=== PATIENT | female | born 1965 | race Caucasian/White ===

== ENCOUNTER 2019-01-10 16:54 | Inpatient (IN) | payer SELFPAY ==
[~2019-01-10] VITALS: Ht 152.4 cm; Wt 55.5 kg
[2019-01-10] MEDS ORDERED: IV NORMAL SALINE 1000ML BAG 1,000 ML IV SCH ×2 (16:58→21:00)
[2019-01-10] MEDS ORDERED: IV NORMAL SALINE 1000ML BAG 1,000 ML IV ONE (17:00)
[2019-01-10 17:19] LABS: CREATININE ISTAT 0.5 mg/dL (0.5-1.4); HEMOGLOBIN ISTAT 9.5 g/dL (12-15); ION CA ISTAT 0.87 mmol/L (1.13-1.32); POTASSIUM ISTAT 3.4 mmol/L (3.5-5.0)
[2019-01-10 17:57] LABS: BASE EXCESS ABG -4 mmol/L (-3-3); HCO3 ABG 17 mmol/L (21-28); PCO2 ABG 22 mmHg (35-46); PO2 ABG 105 mmHg (75-108); SAT O2 ABG 97 % (92-99)
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
[2019-01-10 18:09] LABS: FIO2 ABG 32
[2019-01-10 18:34] LABS: BASO % 0 % (0-3); EOS % 0 % (0-3); HEMATOCRIT 26.3 % (36.0-47.0); HEMOGLOBIN 8.8 g/dL (12.0-15.5); LYMPH # 1.8 x10^3/uL (1.0-4.8); LYMPH % 18 % (24-48); MEAN CORPUSCULAR HEMOGLOBIN 32 pg (25-35); MEAN CORPUSCULAR HGB CONC 33 g/dL (31-37); MEAN CORPUSCULAR VOLUME 97 fL (79-100); MONO # 0.5 x10^3/uL (0.0-1.1); MONO % 5 % (0-9); NEUT # 7.8 x10^3uL (1.8-7.7); NEUT % 77 % (31-73); PLATELET COUNT 385 x10^3/uL (140-400); RED CELL DISTRIBUTION WIDTH 14.6 % (11.5-14.5); WHITE BLOOD COUNT 10.1 x10^3/uL (4.0-11.0)
[2019-01-10 18:44] LABS: PROTHROMBIN TIME PATIENT 16.5 SEC (11.7-14.0)
[2019-01-10 18:56] LABS: ALBUMIN 2.3 g/dL (3.4-5.0); ALBUMIN/GLOBULIN RATIO 0.4 (1.0-1.7); CALCIUM 8.3 mg/dL (8.5-10.1); CREATININE 0.8 mg/dL (0.6-1.0); MAGNESIUM 1.5 mg/dL (1.8-2.4); TOTAL BILIRUBIN 0.5 mg/dL (0.2-1.0); TOTAL PROTEIN 7.6 g/dL (6.4-8.2)
[2019-01-10 19:01] LABS: D-DIMER 4.92 ug/mlFEU (0.00-0.50); POTASSIUM 2.7 mmol/L (3.5-5.1)
--- NOTE | 2019-01-10 19:11 | RAD ---
INDICATION: weakness, tachycardia, no priors COMPARISON: None. TECHNIQUE: Axial CT images obtained through the head without intravenous contrast. One or more of the following individualized dose reduction techniques were utilized for this examination: 1. Automated exposure control; 2. Adjustment of the mA and/or kV according to patient size; 3. Use of iterative reconstruction technique. FINDINGS: No intracranial hemorrhage. No midline shift. Basal cisterns patents. Ventricles and sulci are unremarkable No acute osseous abnormality. Orbits and paranasal sinuses unremarkable. Scattered foci of low attenuation within the white matter. IMPRESSION: 1. No acute intracranial hemorrhage. 2. Scattered regions of low attenuation within the white matter. Non-specific in nature but frequently secondary to chronic small vessel ischemic disease. Electronically signed by: Kenneth Jane MD (01/10/2019 7:07 PM) [facility]
[2019-01-10] MEDS ORDERED: POTASSIUM CHLORIDE 20 MEQ TABLET.ER. PO ONE (19:15)
--- NOTE | 2019-01-10 19:19 | EKG ---
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
[2019-01-10 19:29] LABS: BILIRUBIN,URINE SMALL (NEG); CLARITY,URINE CLOUDY; COLOR,URINE AMBER; NITRITE,URINE NEGATIVE (NEG); PH,URINE 5.5; PROTEIN,URINE 30 mg/dL (NEG-TRACE)
[2019-01-10 19:33] LABS: BARBITURATES NEG (NEG); BENZODIAZEPINES POS (NEG); CANNABINOIDS NEG (NEG); COCAINE POS (NEG); METHADONE NEG (NEG); OPIATES NEG (NEG); PHENCYCLIDINE NEG (NEG)
[2019-01-10 19:36] LABS: AMPHETAMINE/METHAMPHETAMINE NEG (NEG)
[2019-01-10 19:42] LABS: HYALINE CASTS, URINE MANY /HPF
[2019-01-10 19:43] LABS: BACTERIA,URINE MODERATE /HPF (0-FEW); RBC,URINE 20-40 /HPF (0-2); TRICHOMONAS,URINE PRESENT; WBC,URINE >40 /HPF (0-4)
[2019-01-10] MEDS ORDERED: CONTRAST GIVEN. MC PRN (20:15)
[2019-01-10] MEDS ORDERED: cefTRIAXone IV Push 1 GM VIAL. IVP ONE (20:15)
[2019-01-10] MEDS ORDERED: IOHEXOL 350 MG/ML 100 ML VIAL. IV ONE (20:15)
--- NOTE | 2019-01-10 20:45 | RAD ---
INDICATION: soa, elevated d dimer, [id number] 75ml, no priors COMPARISON: None. TECHNIQUE: Axial CT images obtained through the chest. Intravenous contrast utilized. Angiogram 3D images processed per protocol. One or more of the following individualized dose reduction techniques were utilized for this examination: 1. Automated exposure control; 2. Adjustment of the mA and/or kV according to patient size; 3. Use of iterative reconstruction technique. FINDINGS: Within the left breast there is a masslike structure identified measuring approximately 24 x 13 mm. Cystic changes throughout the bilateral lungs. No evidence of pneumothorax. There are several sub-4 mm lung nodules most prominent within the right lung but seen bilaterally. Additionally in the right infrahilar region adjacent to one of the vessels there is a suspected nodule measuring up to about 7 mm. Partial visualization of suspected right renal stones. Suspected small hiatal hernia. Scattered prominent lymph nodes within the mediastinum. For example in the precarinal region measuring up to about 10 mm short axis. Degenerative changes of the spine. Multiple suspected right rib fractures including the third, fifth, 7 and possibly eighth. Small sclerotic focus in the left lower ribs. Most commonly from bone island unless the patient has known history of neoplasm. Portion of ascending thoracic aorta obscured by motion but no aneurysm in visualized portion. No central pulmonary embolus with some of the peripheral vessels obscured by motion. IMPRESSION: No focal airspace consolidation to suggest pneumonia. No embolus in the central pulmonary arteries with some limitation peripherally secondary to motion. Poor evaluation of the ascending thoracic aorta secondary to motion but no aneurysm is seen within the arch or descending thoracic aorta. Right-sided rib fractures are identified. Would correlate with symptoms in the region. Within the partially visualized left breast there is a masslike structure identified. Although it is possible that this is secondary to dense glandular tissue would obtain a diagnostic mammogram to further evaluate and ensure that there is not a breast mass. Multiple pulmonary nodules measuring up to about 7 mm. Fleischner Society recommendations for solitary solid lung nodule follow up.: In a low risk patient: <6mm - No follow up required. 6-8mm - 6-[address], then CT at 18-24 months. >8mm - CT at 3 months, PET/CT or tissue sampling. In a high risk patient (history of smoking or other known risk factors): <6mm - Follow up CT at 12 months. 6-8mm - 6-[address], then CT at 18-24 months. >8mm - CT at 3 months, PET/CT or tissue sampling. Fleischner Society recommendations for multiple solid lung nodule follow up.: In a low risk patient: <6mm - No follow up required. 6-8mm - 3-[address], then CT at 18-24 months. >8mm - CT at 3-6 months, then at 18-24 months. PET/CT or tissue sampling based on most suspicious nodule. In a high risk patient (history of smoking or other known risk factors): <6mm - Follow up CT at 12 months. 6-8mm - 3-[address], then CT at 18-24 months. >8mm - CT at 3-6 months, PET/CT or tissue sampling option based on most suspicious nodule. Electronically signed by: Kenneth Jane MD (01/10/2019 8:42 PM) [facility]
[2019-01-10] MEDS ORDERED: ONDANSETRON PF 4 MG/2 ML VIAL. IV PRN ×2 (21:00→21:15)
[2019-01-10] MEDS ORDERED: ACETAMINOPHEN 325 MG TABLET. PO PRN (21:00)
[2019-01-10] MEDS ORDERED: guaiFENesin ORAL 200 MG/10 ML LIQUID. PO PRN (21:15)
[2019-01-10] MEDS ORDERED: ZOLPIDEM 5 MG TABLET. PO PRN (21:15)
[2019-01-10] MEDS ORDERED: DOCUSATE SODIUM 100 MG CAPSULE. PO PRN (21:15)
[2019-01-10] MEDS ORDERED: MAG HYDROX/ALUMINUM HYD/SIMETH 30 ML ORAL.SUSP PO PRN (21:15)
[2019-01-10] MEDS ORDERED: SODIUM PHOSPHATES 19/7GM 133 ML ENEMA. PR PRN (21:15)
[2019-01-10] MEDS ORDERED: ALBUTEROL SULFATE 2.5 MG/3 ML NEBU. NEB PRN (21:15)
[2019-01-10] MEDS ORDERED: diphenhydrAMINE 50 MG/ML VIAL IVP PRN (21:15)
[2019-01-10] MEDS ORDERED: ACETAMINOPHEN 650 MG SUPP.RECT. PR PRN (21:15)
[2019-01-10] MEDS ORDERED: MAGNESIUM SULFATE 2GM 50 ML IV ONE (21:30)
[2019-01-10] MEDS ORDERED: metroNIDAZOLE 500 MG TABLET PO ONE (21:30)
[2019-01-10] MEDS: IPRATRPIUM/ALBUTEROL 0.5/2.5MG 3 ML NEBU. NEB SCH (22:00)
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
[2019-01-10] MEDS: IV NORMAL SALINE 1000ML BAG 1,000 ML IV SCH (23:58)
[2019-01-11] VITALS (11 sets, daily range): BP systolic 93–137; BP diastolic 44–74
--- NOTE | 2019-01-11 00:15 | NUR ---
The patient, BEBO LEMUS, 53 y/o, F admitted by FARRAH ELLINGTON MD, was given written information regarding hospital policies, unit procedures and contact persons. Valuables were checked and left in the house. Addendum: 01/11/19 at 0243 by MIKEY JOHNSON RN RN Valuables were checked and left in the room.
[2019-01-11] MEDS: POTASSIUM CHLORIDE 10MEQ 100 ML IV SCH ×8 (01:59→09:22)
--- NOTE | 2019-01-11 02:40 | RAD ---
CLINICAL HISTORY: Right lower extremity COMPARISON: None available. TECHNIQUE: Ultrasound evaluation of the right leg was performed from the groin to the upper calf with gamino scale, spectral and color doppler evaluation. FINDINGS: The right common femoral vein, and femoral vein, including the saphenous-femoral junction are normal in appearance. Color and spectral Doppler evaluation demonstrates normal spontaneous flow, augmentation and phasicity. The right popliteal vein and visualized calf veins also demonstrate normal compressibility and flow. IMPRESSION: 1. No evidence for DVT in the right lower extremity Electronically signed by: Manuel Monsalve MD (01/11/2019 2:37 AM) [place] [id number]
--- NOTE | 2019-01-11 02:45 | NUR ---
Patient Potassium chloride running behind as she came to the floor at 0015 FROM ED, and the KCL from 2200 has not been administered.
[2019-01-11 04:20] LABS: BASO % 1 % (0-3); EOS # 0.1 x10^3/uL (0.0-0.7); EOS % 1 % (0-3); LYMPH # 3.2 x10^3/uL (1.0-4.8); LYMPH % 48 % (24-48); MEAN CORPUSCULAR HEMOGLOBIN 32 pg (25-35); MEAN CORPUSCULAR HGB CONC 33 g/dL (31-37); MEAN CORPUSCULAR VOLUME 98 fL (79-100); MONO # 0.4 x10^3/uL (0.0-1.1); MONO % 6 % (0-9); NEUT % 45 % (31-73); PLATELET COUNT 300 x10^3/uL (140-400); RED CELL DISTRIBUTION WIDTH 14.4 % (11.5-14.5); WHITE BLOOD COUNT 6.7 x10^3/uL (4.0-11.0)
[2019-01-11 04:39] LABS: HEMOGLOBIN 6.1 g/dL (12.0-15.5)
[2019-01-11 04:40] LABS: HEMATOCRIT 18.7 % (36.0-47.0)
[2019-01-11 04:49] LABS: CALCIUM 7.4 mg/dL (8.5-10.1); CREATININE 0.7 mg/dL (0.6-1.0); GFR 87.5; POTASSIUM 3.2 mmol/L (3.5-5.1)
[2019-01-11] MEDS: IPRATRPIUM/ALBUTEROL 0.5/2.5MG 3 ML NEBU. NEB SCH ×5 (06:21→22:00)
--- NOTE | 2019-01-11 07:21 | NUR ---
Patient Hemoglobin and hemocratic was critical at 6. and 18.7 respectively. The nurse called the doctor and received an order to repeat the labs and then transfuse 2 units of blood. The labs were repeated after 30 minutes, hemoglobin was 7.1 and hemocratic was 22.6. The nurse called the lab to find out if they have an idea what could have caused the difference within that short duration. Amy, from lab, called and told the nurse that they will repeat the labs to see if they can find out what is going on. The nurse will continue monitoring the patient.
--- NOTE | 2019-01-11 08:07 | RAD ---
Chest radiograph 01/10/2019 6:11 PM INDICATION: Vertigo, mild distress COMPARISON: None available TECHNIQUE: Portable upright frontal view of the chest is provided. FINDINGS: The cardiomediastinal silhouette is within normal limits. There are no pleural effusions. There is no pulmonary vascular congestion. There is no pneumothorax. The lungs are clear. Pulmonary emphysematous changes are present. No significant osseous abnormality is identified. IMPRESSION: COPD changes without acute cardiopulmonary process. Electronically signed by: Kassy Villar MD (01/11/2019 8:04 AM) [id number]
--- NOTE | 2019-01-11 08:14 | RAD ---
Examination: PELVIS History: ER PATIENT. PELVIS PAIN TODAY NKI. Comparison/Correlation: 01/10/2019 portable view of the pelvis Findings: Portable frontal view of the pelvis was obtained. Patient is oblique on this image which may slightly limit assessment. Intrauterine device noted. Hip joint spaces are symmetric. No displaced fracture or bony destructive finding. Transitional L5 vertebra noted. No significant degenerative change. Calcification within the pelvic midline anteriorly is of indeterminate significance. Impression: No acute process. Consider further correlation if occult process is a persistent concern. Electronically signed by: Robbie Ellsworth MD (01/11/2019 8:11 AM) [facility]
[2019-01-11] MEDS ORDERED: ENOXAPARIN 40 MG/0.4 ML SYRINGE. SQ SCH (09:00)
[2019-01-11 09:43] LABS: HEMOGLOBIN 6.3 g/dL (12.0-15.5)
--- NOTE | 2019-01-11 09:45 | NUR ---
wound care patient seen per wound care consult. see wound assessment. patient has a right dorsal foot wound that patient state her dog stepped on her foot, the wound was cleaned and redressed with Medihoney alginate with a foam dressing, change every 2-3 days. patient assessed from head to toe and no other wounds noted at this time. wound care will continue to f/u.
[2019-01-11 09:53] LABS: HEMATOCRIT 18.9 % (36.0-47.0)
--- NOTE | 2019-01-11 09:57 | PDOC ---
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 Chloride (Klor-Con) 40 meq DAILY16 PO ; Start 01/11/19 at 16:00 Sodium Chloride 1,000 ml @ 100 mls/hr Q10H IV Last administered on 01/10/19at 23:58; Start 01/10/19 at 21:05 Ondansetron HCl (Zofran) 4 mg PRN Q4HRS PRN IV NAUSEA/VOMITING 1ST CHOICE; Start 01/10/19 at 21:15 Zolpidem Tartrate (Ambien) 5 mg PRN QHS PRN PO INSOMNIA; Start 01/10/19 at 21: 15 Acetaminophen (Tylenol) 650 mg PRN Q4HRS PRN PO TEMP OVER 100.4F OR MILD PAIN; Start 01/10/19 at 21:15 Acetaminophen (Tylenol Supp) 650 mg PRN Q4HRS PRN SD TEMP OVER 100.4F OR MILD PAIN; Start 01/10/19 at 21:15 Al Hydroxide/Mg Hydroxide (Mylanta Plus Xs) 30 ml PRN DAILY PRN PO HEARTBURN / GAS; Start 01/10/19 at 21:15 Sodium Monofluorophosphate (Fleet Adult) 133 ml PRN DAILY PRN SD CONSTIPATION 2ND CHOICE; Start 01/10/19 at 21:15 Diphenhydramine HCl (Benadryl) 25 mg PRN Q4HRS PRN IVP ITCHING; Start 01/10/19 at 21:15 Docusate Sodium (Colace) 100 mg PRN BID PRN PO CONSTIPATION 1ST CHOICE; Start 01/10/19 at 21:15 Albuterol Sulfate (Ventolin Neb Soln) 2.5 mg PRN Q4HRS PRN NEB SHORTNESS OF BREATH; Start 01/10/19 at 21:15 Albuterol/ Ipratropium (Duoneb) 3 ml Q4HRS W/A NEB Last administered on at 06:21; Start 01/10/19 at 22:00 Guaifenesin (Robitussin) 200 mg PRN Q4HRS PRN PO COUGH 1ST CHOICE; Start at 21:15 Lorazepam (Ativan) 1 mg PRN Q4HRS PRN IV ANXIETY / AGITATION Last administered on 01/11/19at 01:58; Start 01/10/19 at 21:15 Enoxaparin Sodium (Lovenox 40mg Syringe) 40 mg DAILY SQ Last administered on 08/21at 09:21; Start 01/11/19 at 09:00 Levofloxacin/ Dextrose 100 ml @ 100 mls/hr Q24H IV Last administered on at 23:58; Start 01/10/19 at 22:00 Potassium Chloride/Water 100 ml @ 100 mls/hr Q1H IV Last administered on at 09:22; Start 01/10/19 at 22:00; Stop 01/11/19 at 06:00; Status DC Magnesium Sulfate 50 ml @ 25 mls/hr 1X ONCE IV Last administered on 01/11/19at 00:02; Start 01/10/19 at 21:30; Stop 01/10/19 at 23:29; Status DC Vitals/I & O Vital Sign - Last 24 Hours 01/10/19 01/11/19 01/11/19 01/11/19 17:05 00:15 00:48 03:57 Temp 98.6 97.8 98.4 98.6 97.8 98.4 Pulse 134 113 105 Resp 22 16 20 B/P (MAP) 132/66 (88) 125/60 (81) 93/44 (60) Pulse Ox 88 97 97 O2 Delivery Room Air Room Air Room Air Room Air 01/11/19 01/11/19 06:19 07:00 Temp 99.2 99.2 Pulse 103 Resp 16 B/P (MAP) 103/46 (65) Pulse Ox 99 96 O2 Delivery Room Air Room Air Intake and Output 01/10/19 01/10/19 01/11/19 14:59 22:59 06:59 Intake Total 2000 ml 440 ml Output Total 700 ml Balance 2000 ml -260 ml RENETTA VALENCIA MD Jan 11, 2019 09:57
[2019-01-11] MEDS: PANTOPRAZOLE IV PUSH 40 MG VIAL. IVP SCH (10:30)
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
[2019-01-11 12:16] LABS: FREE T4 1.35 ng/dL (0.76-1.46)
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
[2019-01-11] MEDS ORDERED: POTASSIUM CHLORIDE 20 MEQ TABLET.ER. PO ONE (14:00)
--- NOTE | 2019-01-11 15:27 | NUR ---
3 x Potassium bags were non-admin once patient started on PO tablets.
[2019-01-11] MEDS: POTASSIUM CHLORIDE 20 MEQ TABLET.ER. PO SCH (16:01)
[2019-01-11] MEDS: IV NORMAL SALINE 1000ML BAG 1,000 ML IV SCH ×2 (16:02→17:44)
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
[2019-01-11] MEDS: ACETAMINOPHEN 325 MG TABLET. PO PRN (18:30)
[2019-01-11] MEDS: LACTOBACILLUS RHAMNOSUS GG 1 CAPSULE. PO SCH (20:29)
[2019-01-11] MEDS: cefTRIAXone IV Push 1 GM VIAL. IVP SCH (20:30)
[2019-01-12 03:15] VITALS: BP 107/64
[2019-01-12 04:45] LABS: BASO % 1 % (0-3); EOS # 0.1 x10^3/uL (0.0-0.7); EOS % 2 % (0-3); HEMATOCRIT 23.8 % (36.0-47.0); HEMOGLOBIN 8.1 g/dL (12.0-15.5); LYMPH % 56 % (24-48); MEAN CORPUSCULAR HEMOGLOBIN 34 pg (25-35); MEAN CORPUSCULAR HGB CONC 34 g/dL (31-37); MEAN CORPUSCULAR VOLUME 98 fL (79-100); MONO # 0.3 x10^3/uL (0.0-1.1); MONO % 8 % (0-9); NEUT # 1.2 x10^3uL (1.8-7.7); NEUT % 33 % (31-73); PLATELET COUNT 237 x10^3/uL (140-400); RED BLOOD COUNT 2.42 x10^6/uL (3.50-5.40); RED CELL DISTRIBUTION WIDTH 14.5 % (11.5-14.5); WHITE BLOOD COUNT 3.6 x10^3/uL (4.0-11.0)
[2019-01-12 05:17] LABS: ALBUMIN 1.7 g/dL (3.4-5.0); ALBUMIN/GLOBULIN RATIO 0.4 (1.0-1.7); ALK PHOS 79 U/L (46-116); ANION GAP 9 (6-14); AST (SGOT) 17 U/L (15-37); BLOOD UREA NITROGEN 7 mg/dL (7-20); BUN/CREATININE RATIO 12 (6-20); CALCIUM 7.4 mg/dL (8.5-10.1); CARBON DIOXIDE 23 mmol/L (21-32); CHLORIDE 106 mmol/L (98-107); CREATININE 0.6 mg/dL (0.6-1.0); GFR 104.6; GLUCOSE 105 mg/dL (70-99); POTASSIUM 3.6 mmol/L (3.5-5.1); SODIUM 138 mmol/L (136-145); TOTAL BILIRUBIN 0.6 mg/dL (0.2-1.0); TOTAL PROTEIN 5.7 g/dL (6.4-8.2)
[2019-01-12 05:38] LABS: ALT (SGPT) < 6 U/L (14-59)
[2019-01-12] MEDS: IV NORMAL SALINE 1000ML BAG 1,000 ML IV SCH ×3 (05:56→17:18)
[2019-01-12] MEDS: IPRATRPIUM/ALBUTEROL 0.5/2.5MG 3 ML NEBU. NEB SCH ×5 (06:00→22:00)
[2019-01-12 07:00] VITALS: BP 122/67
[2019-01-12] MEDS: PANTOPRAZOLE IV PUSH 40 MG VIAL. IVP SCH (07:59)
[2019-01-12] MEDS: ACETAMINOPHEN 325 MG TABLET. PO PRN ×2 (08:06→17:15)
[2019-01-12] MEDS: POTASSIUM CHLORIDE 20 MEQ TABLET.ER. PO SCH ×2 (08:07→17:16)
[2019-01-12] MEDS: LACTOBACILLUS RHAMNOSUS GG 1 CAPSULE. PO SCH ×2 (08:07→21:25)
--- NOTE | 2019-01-12 09:20 | PDOC ---
Subjective: Subjective: Says she needs the pain in her leg to stop, asks about Voltaren. No GI complaints - tolerating PO, denies abd pain. Hasn't stooled "but I just started eating again." No bleeding. Objective: Vital Signs: Vital Signs Date Time Temp Pulse Resp B/P (MAP) Pulse Ox O2 Delivery O2 Flow Rate FiO2 01/12/19 07:00 98.2 84 20 122/67 (85) 97 Room Air 98.2 Labs: Laboratory Tests Test 01/12/19 04:20 White Blood Count 3.6 x10^3/uL Red Blood Count 2.42 x10^6/uL Hemoglobin 8.1 g/dL Hematocrit 23.8 % Mean Corpuscular Volume 98 fL Mean Corpuscular Hemoglobin 34 pg Mean Corpuscular Hemoglobin Concent 34 g/dL Red Cell Distribution Width 14.5 % Platelet Count 237 x10^3/uL Neutrophils (%) (Auto) 33 % Lymphocytes (%) (Auto) 56 % Monocytes (%) (Auto) 8 % Eosinophils (%) (Auto) 2 % Basophils (%) (Auto) 1 % Neutrophils # (Auto) 1.2 x10^3uL Lymphocytes # (Auto) 2.0 x10^3/uL Monocytes # (Auto) 0.3 x10^3/uL Eosinophils # (Auto) 0.1 x10^3/uL Basophils # (Auto) 0.0 x10^3/uL Sodium Level 138 mmol/L Potassium Level 3.6 mmol/L Chloride Level 106 mmol/L Carbon Dioxide Level 23 mmol/L Anion Gap 9 Blood Urea Nitrogen 7 mg/dL Creatinine 0.6 mg/dL Estimated GFR (Cockcroft-Gault) 104.6 BUN/Creatinine Ratio 12 Glucose Level 105 mg/dL Calcium Level 7.4 mg/dL Total Bilirubin 0.6 mg/dL Aspartate Amino Transf (AST/SGOT) 17 U/L Alanine Aminotransferase (ALT/SGPT) < 6 U/L Alkaline Phosphatase 79 U/L Total Protein 5.7 g/dL Albumin 1.7 g/dL Albumin/Globulin Ratio 0.4 Imaging: CT A/P 01/11 IMPRESSION: There is no free fluid within the abdomen and pelvis. No retroperitoneal or intra-abdominal hematoma. Nonobstructing bilateral renal calculi are identified. No hydronephrosis. IUD is present. Small hiatal hernia. Knee X-Ray 01/11 pending PE: GEN: NAD LUNGS: CTAB HEART: RRR ABD: NABS, S/ND/NT NEURO/PSYCH: A & O 3 A/P: Right leg pain ACD Hep C IgG Ab reactive -- Defer pain control to primary, await Hep C PCR and cryoglobulins. Can have PO PPI. ARIANNA MELO Jan 12, 2019 09:20
[2019-01-12] MEDS ORDERED: POLYETHYLENE GLYCOL 3350 17 GM PACKET. PO PRN (09:30)
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
[2019-01-12 11:00] VITALS: BP 131/79
--- NOTE | 2019-01-12 11:32 | NUR ---
Telemetry rhythm SR with PVC per charge nurse, Erna
[2019-01-12] MEDS: DICLOFENAC SODIUM 1% TOPICAL GEL 100GM TUBE. TP SCH ×2 (13:00→21:25)
[2019-01-12] MEDS: GABAPENTIN 100 MG CAPSULE. PO SCH ×2 (13:41→21:25)
--- NOTE | 2019-01-12 13:53 | NUR ---
SW following pt for dc needs. Chart reviewed. Pt lives at home alone and no dc needs noted at this time. Will continue to evaluate.
--- NOTE | 2019-01-12 14:05 | RAD ---
3 view study of both knees Clinical indications: Pain and swelling of knees. Right knee: No acute fracture or dislocation or lytic process is seen. Small right knee joint effusion is seen. No significant arthritic change is seen. Left knee: No acute fracture or dislocation or lytic process is seen. Small left knee joint effusion is seen. No significant arthritic change is seen. IMPRESSION: No acute osseous abnormality. Small bilateral knee joint effusions. Electronically signed by: Washington Newby MD (01/12/2019 2:03 PM) [facility]
--- NOTE | 2019-01-12 14:24 | EEG ---
DATE OF SERVICE: 01/11/2019 EEG NUMBER: [id number] OBJECTIVE: This is a 53-year-old female patient with history of confusional episodes. EEG was requested to help rule out seizure. METHODS: Twenty electrodes were applied according to the international 10-20 electrode placement system. EKG monitoring, hyperventilation, intermittent photic stimulation, monopolar and bipolar montages are routinely utilized. The record was obtained on a digital system with video monitoring. MEDICATIONS: No anti-seizure medication. Cocaine positive in test. FINDINGS: 1. Background: The patient was recorded in the awake and drowsy states. No sleep state was recorded. The overall background amplitude is 10-20 microvolts. A posterior dominant rhythm of 8 Hz is observed with superimposed fast activity in the Beta frequency. 2. Abnormalities: No specific epileptiform discharge or electrographic seizure is seen. No focal or diffuse slowing. 3. Activation: Hyperventilation was performed with good efforts and normal response. Intermittent photic stimulation was performed with photic driving. No specific epileptiform discharge or electrographic seizure induced by hyperventilation or intermittent photic stimulation. IMPRESSION: This EEG is a borderline study for the awake and drowsy states. There is superimposed fast activity in the Beta frequency which may be medication or drug effect. No focal, lateralizing, specific epileptiform discharge or electrographic seizure is seen. CHARLIE BAIRD MD DR: GONZALO/axel JOB#: [id number] / [id number] CELE[facility]
[2019-01-12 15:00] VITALS: BP 129/79
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
[2019-01-12] MEDS: CALCIUM CARB/VIT D3 500/200 TABLET. PO SCH (17:15)
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
[2019-01-12 19:00] VITALS: BP 127/69
[2019-01-12 19:09] LABS: FECAL OB PT NEGATIVE (NEG)
[2019-01-12] MEDS: cefTRIAXone IV Push 1 GM VIAL. IVP SCH (21:23)
--- NOTE | 2019-01-12 22:08 | NUR ---
PT REFUSED NEBULIZER TREATMENT, STATING THAT SHE JUST GOT PAIN MEDICINE AND WOULD LIKE TO SLEEP
[2019-01-12 22:25] VITALS: BP 142/83
[2019-01-13 03:00] VITALS: BP 141/81
[2019-01-13] MEDS: ACETAMINOPHEN 325 MG TABLET. PO PRN ×2 (03:04→17:23)
[2019-01-13] MEDS: IV NORMAL SALINE 1000ML BAG 1,000 ML IV SCH ×2 (03:05→19:05)
[2019-01-13] MEDS: IPRATRPIUM/ALBUTEROL 0.5/2.5MG 3 ML NEBU. NEB SCH ×5 (06:00→22:00)
[2019-01-13 07:00] VITALS: BP 150/78
[2019-01-13] MEDS: CALCIUM CARB/VIT D3 500/200 TABLET. PO SCH ×2 (09:01→17:23)
[2019-01-13] MEDS: LACTOBACILLUS RHAMNOSUS GG 1 CAPSULE. PO SCH ×2 (09:01→20:49)
[2019-01-13] MEDS: PANTOPRAZOLE 40 MG TABLET.DR. PO SCH (09:01)
[2019-01-13] MEDS: GABAPENTIN 100 MG CAPSULE. PO SCH ×3 (09:01→20:49)
[2019-01-13] MEDS: POTASSIUM CHLORIDE 20 MEQ TABLET.ER. PO SCH ×2 (09:02→17:23)
[2019-01-13] MEDS: DICLOFENAC SODIUM 1% TOPICAL GEL 100GM TUBE. TP SCH ×2 (09:05→20:49)
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
--- NOTE | 2019-01-13 10:48 | NUR ---
[facility] d/c'ed per protocol
[2019-01-13 11:00] VITALS: BP 148/90
[2019-01-13 11:14] LABS: HCV ULTRA QUANT PCR 282000 IU/mL (.)
--- NOTE | 2019-01-13 11:57 | RAD ---
CT lumbar spine without contrast. HISTORY: Back pain, right hip and lower extremity weakness CT scan was used to evaluate the lumbar spine without contrast. There is a small left pleural effusion. There are bilateral intrarenal calculi, the largest calculus measures 7 mm on the left. The T11-12 and T12-L1 discs are unremarkable. L1-2 disc is normal without spinal stenosis or foraminal stenosis. L2-3 disc is normal without spinal stenosis or foraminal stenosis. There is minimal bulging at L3-4 without spinal stenosis or foraminal stenosis. There is mild facet arthritis at L4-5. There is no focal disc protrusion at L4-5 spinal stenosis. There is no disc protrusion or spinal stenosis at L5-S1. There is mild facet arthritis at L5-S1. IMPRESSION: 1. Mild facet arthritis in the lower lumbar spine. 2. No focal disc protrusion or spinal stenosis or foraminal stenosis noted in the lumbar spine. 3. Bilateral intrarenal calculi. 4. Small left pleural effusion. PQRS Compliance Statement: One or more of the following individualized dose reduction techniques were utilized for this examination: 1. Automated exposure control 2. Adjustment of the mA and/or kV according to patient size 3. Use of iterative reconstruction technique Electronically signed by: Luis Estrada MD (01/13/2019 11:54 AM) [facility]
[2019-01-13 15:00] VITALS: BP 147/84
--- NOTE | 2019-01-13 15:39 | NUR ---
PATIENT REFUSED BREATHING TREATMENT DUE TO MAKES HER SHAKY
[2019-01-13 19:35] VITALS: BP 125/57
[2019-01-13] MEDS: AMOXICILLIN/K CLAV 500/125MG TABLET. PO SCH (20:49)
[2019-01-13 23:35] VITALS: BP 127/77
[2019-01-14 03:40] VITALS: BP 145/81
[2019-01-14] MEDS: IV NORMAL SALINE 1000ML BAG 1,000 ML IV SCH ×2 (03:59→15:05)
[2019-01-14 07:45] VITALS: BP 154/70
[2019-01-14] MEDS: IPRATRPIUM/ALBUTEROL 0.5/2.5MG 3 ML NEBU. NEB SCH ×3 (07:55→14:00)
[2019-01-14] MEDS: PANTOPRAZOLE 40 MG TABLET.DR. PO SCH (08:32)
[2019-01-14] MEDS: LACTOBACILLUS RHAMNOSUS GG 1 CAPSULE. PO SCH (08:32)
[2019-01-14] MEDS: DICLOFENAC SODIUM 1% TOPICAL GEL 100GM TUBE. TP SCH (08:32)
[2019-01-14] MEDS: AMOXICILLIN/K CLAV 500/125MG TABLET. PO SCH (08:32)
[2019-01-14] MEDS: CALCIUM CARB/VIT D3 500/200 TABLET. PO SCH (08:33)
[2019-01-14] MEDS: POTASSIUM CHLORIDE 20 MEQ TABLET.ER. PO SCH (08:33)
[2019-01-14] MEDS: GABAPENTIN 100 MG CAPSULE. PO SCH ×2 (08:33→13:05)
[2019-01-14 11:12] VITALS: BP 149/79
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
[2019-01-14 12:06] LABS: BASO % 1 % (0-3); EOS # 0.1 x10^3/uL (0.0-0.7); EOS % 3 % (0-3); HEMATOCRIT 29.8 % (36.0-47.0); HEMOGLOBIN 10.2 g/dL (12.0-15.5); LYMPH % 41 % (24-48); MEAN CORPUSCULAR HEMOGLOBIN 34 pg (25-35); MEAN CORPUSCULAR HGB CONC 34 g/dL (31-37); MEAN CORPUSCULAR VOLUME 99 fL (79-100); MONO # 0.3 x10^3/uL (0.0-1.1); MONO % 7 % (0-9); NEUT # 2.5 x10^3uL (1.8-7.7); NEUT % 49 % (31-73); PLATELET COUNT 343 x10^3/uL (140-400); RED BLOOD COUNT 3.01 x10^6/uL (3.50-5.40); RED CELL DISTRIBUTION WIDTH 14.5 % (11.5-14.5)
[2019-01-14 12:19] LABS: CALCIUM 8.4 mg/dL (8.5-10.1); CREATININE 0.6 mg/dL (0.6-1.0); GFR 104.6; POTASSIUM 4.4 mmol/L (3.5-5.1)
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
[2019-01-14] MEDS ORDERED: DOCU-109 PO (13:16)
[2019-01-14] MEDS ORDERED: DICL100G18 TP (13:16)
[2019-01-14] MEDS ORDERED: CALC1TAB72 PO (13:16)
--- NOTE | 2019-01-14 13:18 | DISCH ---
DISCHARGE INSTRUCTIONS Condition on Discharge Condition on Discharge: Guarded Activity After Discharge Activity Instructions for Disc: Resume previous activity Driving Instructions after Dis: Do not drive Weight Bearing Status after Di: As tolerated Diet after Discharge Diet after Discharge: Cardiac Checks after Discharge Checks after discharge: Check blood press - daily Contacting the DR. after DC Call your doctor for: If your condition worsens RENETTA VALENCIA MD Jan 14, 2019 13:18
--- NOTE | 2019-01-14 15:22 | NUR ---
Pt was given discharge information, follow up info, new prescriptions, and teaching. Wound dressing was changed, and pt showered before discharge. Dr. Cooley recommended narcotics anonymous 2x day to pt, she states she has a good support person to attend these meetings with her. Pt is alertx4, stable. She is going home with voltaren gel. Pt has wound, and was told how to take care of dressing and when to remove it. Follow up with wound care as needed, if she can afford it. 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 Although pt claims there was a wallet she had when she came in through the ER, this was never documented, and pt is unsure if her friends took it with her.
[2019-01-15 15:14] LABS: IMMUNOGLOBULIN A 223 mg/dL (87-352); IMMUNOGLOBULIN G 1433 mg/dL (700-1600); IMMUNOGLOBULIN M 154 mg/dL (26-217)
[2019-01-15 17:12] LABS: ALBUM 2.3 g/dL (2.9-4.4); ALPHA 1 0.4 g/dL (0.0-0.4); BETA 0.6 g/dL (0.7-1.3); GAMMA 1.4 g/dL (0.4-1.8); PROTEIN TOTAL 5.7 g/dL (6.0-8.5); SPEP AG RATIO 0.7 (0.7-1.7)
[2019-01-16 18:11] LABS: ANA INTERP Negative (.)
== END 2019-01-14 15:22 | disposition home or self-care (01) | DRG 640 ==
LOC: ER 16:54 → 6 SOUTH 21:00
PROVIDERS: ADMIT Internal Medicine; ATTEND Internal Medicine
PROC: 30233N1 Transfusion of Nonautologous Red Blood Cells into Peripheral Vein, Percutaneous Approach (ICD-10-PCS; principal; 2019-01-11)
DX: E86.0 Dehydration (principal); E43 Unspecified severe protein-calorie malnutrition; N39.0 Urinary tract infection, site not specified; D72.820 Lymphocytosis (symptomatic); E83.42 Hypomagnesemia; E86.1 Hypovolemia; E87.6 Hypokalemia; F14.10 Cocaine abuse, uncomplicated; F15.10 Other stimulant abuse, uncomplicated; F17.210 Nicotine dependence, cigarettes, uncomplicated; J44.9 Chronic obstructive pulmonary disease, unspecified; K44.9 Diaphragmatic hernia without obstruction or gangrene; M46.96 Unspecified inflammatory spondylopathy, lumbar region; N20.0 Calculus of kidney; N63.20 Unspecified lump in the left breast, unspecified quadrant; X58.XXXD Exposure to other specified factors, subsequent encounter; R91.1 Solitary pulmonary nodule; A59.9 Trichomoniasis, unspecified; D63.8 Anemia in other chronic diseases classified elsewhere; Z71.51 Drug abuse counseling and surveillance of drug abuser; S22.41XD Multiple fractures of ribs, right side, subsequent encounter for fracture with routine healing; Z68.23 Body mass index [BMI] 23.0-23.9, adult
CPT/HCPCS: 36415; 36600; 70450; 71045; 71275; 72131; 72170; 73562; 74176; 80047; 80048; 80053; 80307; 81001; 82140; 82274; 82310; 82550; 82595; 82607; 82728; 82805; 82962; 83010; 83540; 83550; 83605; 83690; 83735; 83880; 84165; 84439; 84443; 84481; 84484; 85014; 85018; 85025; 85045; 85379; 85610; 86038; 86334; 86703; 86803; 86850; 86900; 86901; 86920; 87040; 87086; 87340; 87521; 93005; 93971; 94640; 94760; 95816; 96361; 96374; 99291; C9113; G0480; J0696; J1650; J1956; J2060; J3475; J3480; J7030; J7620; P9016; Q9967

== ENCOUNTER 2019-01-22 15:26 | Inpatient (IN) | payer SELFPAY ==
[~2019-01-22] VITALS: Ht 152.4 cm; Wt 56.7 kg
[~2019-01-22 15:26] MED LIST: CALC1TAB72 PO; DICL100G18 TP; DOCU-109 PO
[2019-01-22] MEDS ORDERED: IV NORMAL SALINE 1000ML BAG 1,000 ML IV SCH (15:34)
[2019-01-22 16:23] LABS: BASO % 1 % (0-3); EOS % 0 % (0-3); HEMATOCRIT 38.3 % (36.0-47.0); HEMOGLOBIN 12.8 g/dL (12.0-15.5); LYMPH # 2.4 x10^3/uL (1.0-4.8); LYMPH % 29 % (24-48); MEAN CORPUSCULAR HEMOGLOBIN 33 pg (25-35); MEAN CORPUSCULAR HGB CONC 34 g/dL (31-37); MEAN CORPUSCULAR VOLUME 99 fL (79-100); MONO # 0.9 x10^3/uL (0.0-1.1); MONO % 11 % (0-9); NEUT % 60 % (31-73); PLATELET COUNT 622 x10^3/uL (140-400); RED BLOOD COUNT 3.85 x10^6/uL (3.50-5.40); RED CELL DISTRIBUTION WIDTH 15.2 % (11.5-14.5); WHITE BLOOD COUNT 8.3 x10^3/uL (4.0-11.0)
[2019-01-22 16:29] LABS: BASE EXCESS ABG 4 mmol/L (-3-3); HCO3 ABG 26 mmol/L (21-28); PCO2 ABG 30 mmHg (35-46); PO2 ABG 73 mmHg (75-108); SAT O2 ABG 95 % (92-99)
[2019-01-22 16:32] LABS: FIO2 ABG 21
[2019-01-22 16:36] LABS: CALCIUM 9.8 mg/dL (8.5-10.1); CREATININE 0.9 mg/dL (0.6-1.0); GFR 65.5
[2019-01-22 16:42] LABS: ALBUMIN/GLOBULIN RATIO 0.5 (1.0-1.7); MAGNESIUM 1.6 mg/dL (1.8-2.4); TOTAL BILIRUBIN 1.1 mg/dL (0.2-1.0)
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
[2019-01-22 16:45] LABS: PROTHROMBIN TIME PATIENT 14.4 SEC (11.7-14.0)
[2019-01-22 17:03] LABS: BILIRUBIN,URINE MODERATE (NEG); CLARITY,URINE CLOUDY; COLOR,URINE ORANGE; NITRITE,URINE POSITIVE (NEG); PH,URINE 5.5; PROTEIN,URINE 100 mg/dL (NEG-TRACE)
[2019-01-22 17:15] LABS: BACTERIA,URINE FEW /HPF (0-FEW); SQUAMOUS EPITHELIAL CELL,UR OCC /LPF
[2019-01-22] MEDS ORDERED: cefTRIAXone IM 1 GM VIAL IM ONE (17:30)
[2019-01-22] MEDS ORDERED: POTASSIUM CHLORIDE 20 MEQ TABLET.ER. PO ONE (17:30)
[2019-01-22] MEDS: MAGNESIUM OXIDE 400 MG TABLET PO SCH (17:41)
--- NOTE | 2019-01-22 17:49 | RAD ---
PORTABLE CHEST 1V Clinical History: ER PATIENT. WEAKNESS, ATRAUMATIC MIDSTERNAL CHEST PAIN. PRIOR XRAY. Technique: AP view of the chest was obtained at 01/22/2019 5:10 PM. Comparison: None. Findings: The cardiomediastinal silhouette is normal. The pulmonary vasculature is normal. The lungs and pleural margins are clear. Impression: No evidence of an acute cardiopulmonary process. Electronically signed by: Gibran Askew III, MD (01/22/2019 5:46 PM) [facility]
[2019-01-22] MEDS ORDERED: IV NORMAL SALINE 1000ML BAG 1,000 ML IV ONE (18:30)
[2019-01-22] MEDS ORDERED: HYDROcodone/APAP 5/325MG 1 TAB TABLET PO ONE (20:45)
[2019-01-22] MEDS: IV NORMAL SALINE 1000ML BAG 1,000 ML IV SCH (21:30)
[2019-01-22 23:15] VITALS: BP 136/79
[2019-01-23] VITALS (7 sets, daily range): BP systolic 100–143; BP diastolic 56–90
--- NOTE | 2019-01-23 06:32 | EKG ---
[facility] [address] [place] [address] Test Date: 2019-01-22 Test Time: 15:42:37 Pat Name: BEBO LEMUS Department: Room: [facility] Gender: F Console Attendant: : 1965 Requested By: DEONNA MILLER Order Number: [id number] Reading MD: Fadi Dixon MD Measurements Intervals [place] Rate: 130 P: 76 IL: 104 QRS: 69 QRSD: 62 T: 69 QT: 296 QTc: 442 Interpretive Statements SINUS TACHYCARDIA Electronically Signed On 01-26-2019 14:53:41 CDT by Fadi Dixon MD
--- NOTE | 2019-01-23 06:35 | EKG ---
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
[2019-01-23 07:26] LABS: BARBITURATES NEG (NEG); BENZODIAZEPINES POS (NEG); CANNABINOIDS NEG (NEG); COCAINE POS (NEG); METHADONE NEG (NEG); OPIATES POS (NEG); PHENCYCLIDINE NEG (NEG)
[2019-01-23 07:28] LABS: AMPHETAMINE/METHAMPHETAMINE NEG (NEG)
[2019-01-23 08:24] LABS: CALCIUM 8.9 mg/dL (8.5-10.1); CREATININE 0.6 mg/dL (0.6-1.0); GFR 104.6; POTASSIUM 3.4 mmol/L (3.5-5.1)
[2019-01-23] MEDS: MAGNESIUM OXIDE 400 MG TABLET PO SCH (09:16)
[2019-01-23] MEDS ORDERED: POTASSIUM CHLORIDE 20 MEQ TABLET.ER. PO ONE (10:15)
[2019-01-23] MEDS ORDERED: MAGNESIUM SULFATE 4GM 100 ML IV ONE (10:30)
[2019-01-23] MEDS ORDERED: PHENAZOPYRIDINE 200 MG TABLET. PO ONE (11:00)
[2019-01-23] MEDS: IV NORMAL SALINE 1000ML BAG 1,000 ML IV SCH (11:27)
[2019-01-23] MEDS: HYDROcodone/APAP 5/325MG 1 TAB TABLET PO PRN ×2 (14:47→21:57)
--- NOTE | 2019-01-23 15:12 | NUR ---
SW following pt for anticipated dc needs. Chart reviewed and DW RN. Pt lives at home. PT/OT pending and pt is Self-Pay as well. No dc recommendations noted at this time. Will continue to evaluate needs.
--- NOTE | 2019-01-23 16:58 | PDOC1 ---
History and Physical Date of Admission Date of Admission DATE: 01/23/19 TIME: 16:58 Identification/Chief Complaint Chief Complaint weakness Source Source: Chart review, Patient History of Present Illness History of Present Illness LATE ENTRY, Pt seen 929 Chio is a 53 year old female brought in by ambulance because of generalized weakness. recent DC 5 days ago, UDS again lit up for cocaine she had recent anemia and tachycardia. and now has marked weakness with nausea and vomiting. some dyspnea, she denies recent cocaine use before I discussed her drug screen in detail Past Medical History Pulmonary: No pertinent hx Psych: Anxiety, Addictions, Panic, Other Musculoskeletal: low back pain, Muscle atrophy, Weakness, Stiffness ENT: No pertinent hx Renal/: No pertinent hx Endocrine: No pertinent hx, Hyperthyroidism Family History Family History: No Significant Social History Smoke: <1 pack per day ALCOHOL: none Drugs: Cocaine, Marijuana, Other Current Problem List Problem List Problems Medical Problems: (1) Anemia Status: Acute (2) Elevated lactic acid level Status: Acute (3) Elevated liver function tests Status: Acute (4) Generalized weakness Status: Acute (5) Hypomagnesemia Status: Acute (6) SIRS (systemic inflammatory response syndrome) Status: Acute (7) Substance abuse Status: Acute (8) Tachycardia Status: Acute Current Medications Current Medications Current Medications Sodium Chloride 1,000 ml @ 1,000 mls/hr Q1H IV Last administered on 01/22/19at 18:30; Start 01/22/19 at 15:34; Stop 01/22/19 at 16:33; Status DC Potassium Chloride (Klor-Con) 40 meq 1X ONCE PO Last administered on 01/22/19at 17:41; Start 01/22/19 at 17:30; Stop 01/22/19 at 17:31; Status DC Ceftriaxone Sodium (Rocephin Im) 1 gm 1X ONCE IM Last administered on 01/22/19at 17:41; Start 01/22/19 at 17:30; Stop 01/22/19 at 17:31; Status DC Magnesium Oxide (Magnesium Oxide) 400 mg DAILY PO Last administered on 01/23/19at 09:16; Start 01/22/19 at 17:30 Sodium Chloride 1,000 ml @ 1,000 mls/hr 1X ONCE IV Last administered on 01/22/19at 21:33; Start 01/22/19 at 18:30; Stop 01/22/19 at 19:29; Status DC Lorazepam (Ativan) 1 mg 1X ONCE IV Last administered on 01/22/19at 18:30; Star t 01/22/19 at 18:30; Stop 01/22/19 at 18:31; Status DC Acetaminophen/ Hydrocodone Bitart (Lortab 5/325) 2 tab 1X ONCE PO Last administered on 01/22/19at 21:33; Start 01/22/19 at 20:45; Stop 01/22/19 at 20:46; Status DC Sodium Chloride 1,000 ml @ 75 mls/hr [id number] IV Last administered on 01/23/19at 11:27; Start 01/22/19 at 21:30; Stop 01/23/19 at 21:29 Acetaminophen/ Hydrocodone Bitart (Lortab 5/325) 2 tab PRN Q6HRS PRN PO PAIN Last administered on 01/23/19at 14:47; Start 01/22/19 at 21:30 Magnesium Sulfate/ Dextrose 100 ml @ 25 mls/hr 1X ONCE IV Last administered on 01/23/19at 11:26; Start 01/23/19 at 10:30; Stop 01/23/19 at 14:29; Status DC Potassium Chloride (Klor-Con) 40 meq 1X ONCE PO Last administered on 01/23/19at 11:25; Start 01/23/19 at 10:15; Stop 01/23/19 at 10:16; Status DC Ceftriaxone Sodium (Rocephin) 1 gm Q24H IVP ; Start 01/23/19 at 17:00 Phenazopyridine HCl (Pyridium) 200 mg 1X ONCE PO Last administered on 01/23/19at 11:25; Start 01/23/19 at 11:00; Stop 01/23/19 at 11:01; Status DC Phenazopyridine HCl (Pyridium) 200 mg PRN TID PRN PO URINARY PAIN; Start 01/23/19 at 10:45 Lactobacillus Rhamnosus (Culturelle) 1 cap BID PO ; Start 01/23/19 at 21:00 Active Scripts Active Colace (Docusate Sodium) 100 Mg Capsule 100 Mg PO PRN BID PRN 10 Days Oyster Shell 500 Mg + Vit D Tb (Calcium Carbonate/Vitamin D3) 1 Each Tablet 1 Tab PO BIDWMEALS 30 Days Voltaren (Diclofenac Sodium) 100 Gm Gel..gram. 1 Robert TP BID 10 Days Allergies Allergies: Coded Allergies: No Known Drug Allergies (Unverified , 01/10/19) ROS General: YES: Chills, Fatigue, Malaise PSYCHOLOGICAL ROS: YES: Anxiety, Irritablity, Memory difficulties, Mood Swings, Sleep disturbances; No: Behavioral Disorder, Concentration difficultie, Decreased libido, Depression, Disorientation, Hallucinations, Hostility, Obsessive thoughts, Suicidal ideation, Other Eyes: No Blurry vision, No Decreased vision, No Double vision, No Dry eyes, No Excessive tearing, No Eye Pain, No Itchy Eyes, No Loss of vision, No P hotophobia, No Scotomata, No Uses contacts, No Uses glasses, No Other HEENT: No: Heacaches, Visual Changes, Hearing change, Nasal congestion, Nasal discharge, Oral lesions, Sinus pain, Sore Throat, Epistaxis, Sneezing, Snoring, Tinnitus, Vertigo, Vocal changes, Other Respiratory: No: Cough, Hemoptysis, Orthopnea, Pleuritic Pain, Shortness of breath, SOB with excertion, Sputum Changes, Stridor, Tachypnea, Wheezing, Other Cardiovascular: No Chest Pain, No Palpitations, No Orthopnea, No Paroxysmal Noc. Dyspnea, No Edema, No Lt Headedness, No Other Gastrointestinal: No Nausea, No Vomiting, No Abdominal Pain, No Diarrhea, No Constipation, No Melena, No Hematochezia, No Other Genitourinary: No Dysuria, No Frequency, No Incontinence, No Hematuria, No Retention, No Discharge, No Urgency, No Pain, No Flank Pain, No Other, No , No , No , No , No , No , No Musculoskeletal: Yes Joint Pain, Yes Joint Stiffness, Yes Muscular Weakness Neurological: No Behavorial Changes, No Bowel/Bladder ControlChng, No Confusion, No Dizziness, No Gait Disturbance, No Headaches, No Impaired Coord/b alance, No Memory Loss, No Numbness/Tingling, No Seizures, No Speech Problems, No Tremors, No Visual Changes, No Weakness, No Other Skin: Yes Dry Skin; No Eczema, No Hair Changes, No Lumps, No Mole Changes, No Mottling, No Nail Changes, No Pruritus, No Rash, No Skin Lesion Changes, No Other, No Acne Physical Exam General: Alert, Cooperative, mild distress HEENT: Atraumatic, PERRLA, EOMI, Mucous membr. moist/pink Lungs: Normal air movement Heart: no murmurs Abdomen: Normal bowel sounds, Soft Rectal Exam: not examined Extremities: No edema, Normal pulses Neuro: Normal tone, Cranial nerves 3-12 NL Vitals Vitals Vital Signs Date Time Temp Pulse Resp B/P (MAP) Pulse Ox O2 Delivery O2 Flow Rate FiO2 01/23/19 16:03 Room Air 01/23/19 14:46 97.7 97 19 100/57 (71) 96 97.7 Labs Labs Laboratory Tests Test 01/22/19 16:10 01/22/19 16:15 01/22/19 16:41 01/22/19 19:55 White Blood Count 8.3 x10^3/uL (4.0-11.0) Red Blood Count 3.85 x10^6/uL (3.50-5.40) Hemoglobin 12.8 g/dL (12.0-15.5) Hematocrit 38.3 % (36.0-47.0) Mean Corpuscular Volume 99 fL (79-100) Mean Corpuscular Hemoglobin 33 pg (25-35) Mean Corpuscular Hemoglobin Concent 34 g/dL (31-37) Red Cell Distribution Width 15.2 % (11.5-14.5) Platelet Count 622 x10^3/uL (140-400) Neutrophils (%) (Auto) 60 % (31-73) Lymphocytes (%) (Auto) 29 % (24-48) Monocytes (%) (Auto) 11 % (0-9) Eosinophils (%) (Auto) 0 % (0-3) Basophils (%) (Auto) 1 % (0-3) Neutrophils # (Auto) 5.0 x10^3uL (1.8-7.7) Lymphocytes # (Auto) 2.4 x10^3/uL (1.0-4.8) Monocytes # (Auto) 0.9 x10^3/uL (0.0-1.1) Eosinophils # (Auto) 0.0 x10^3/uL (0.0-0.7) Basophils # (Auto) 0.0 x10^3/uL (0.0-0.2) Prothrombin Time 14.4 SEC (11.7-14.0) Prothromb Time International Ratio 1.2 (0.8-1.1) Activated Partial Thromboplast Time 27 SEC (24-38) Sodium Level 135 mmol/L (136-145) Potassium Level 3.0 mmol/L (3.5-5.1) Chloride Level 96 mmol/L (98-107) Carbon Dioxide Level 28 mmol/L (21-32) Anion Gap 11 (6-14) Blood Urea Nitrogen 20 mg/dL (7-20) Creatinine 0.9 mg/dL (0.6-1.0) Estimated GFR (Cockcroft-Gault) 65.5 BUN/Creatinine Ratio 22 (6-20) Glucose Level 144 mg/dL (70-99) Lactic Acid Level 2.7 mmol/L (0.4-2.0) 1.3 mmol/L (0.4-2.0) Calcium Level 9.8 mg/dL (8.5-10.1) Magnesium Level 1.6 mg/dL (1.8-2.4) Total Bilirubin 1.1 mg/dL (0.2-1.0) Aspartate Amino Transf (AST/SGOT) 39 U/L (15-37) Alanine Aminotransferase (ALT/SGPT) 12 U/L (14-59) Alkaline Phosphatase 136 U/L (46-116) Troponin I Quantitative < 0.017 ng/mL (0.000-0.055) Total Protein 9.0 g/dL (6.4-8.2) Albumin 3.0 g/dL (3.4-5.0) Albumin/Globulin Ratio 0.5 (1.0-1.7) Lipase 310 U/L (73-393) Ethyl Alcohol Level < 10 mg/dL (0-10) O2 Saturation 95 % (92-99) Arterial Blood pH 7.55 (7.35-7.45) Arterial Blood pCO2 at Patient Temp 30 mmHg (35-46) Arterial Blood pO2 at Patient Temp 73 mmHg (75-108) Arterial Blood HCO3 26 mmol/L (21-28) Arterial Blood Base Excess 4 mmol/L (-3-3) FiO2 21 Urine Collection Type U cath Urine Color [place] Urine Clarity Cloudy Urine pH 5.5 Urine Specific [place] 1.025 Urine Protein 100 mg/dL (NEG-TRACE) Urine Glucose (UA) 100 mg/dL (NEG) Urine Ketones (Stick) 15 mg/dL (NEG) Urine Blood Small (NEG) Urine Nitrite Positive (NEG) Urine Bilirubin Moderate (NEG) Urine Urobilinogen Dipstick 1.0 mg/dL (0.2 mg/dL) Urine Leukocyte Esterase Small (NEG) Urine RBC 1-2 /HPF (0-2) Urine WBC 1-4 /HPF (0-4) Urine Squamous Epithelial Cells Occ /LPF Urine Bacteria Few /HPF (0-FEW) Urine Mucus Slight /LPF Test 01/23/19 06:42 01/23/19 07:03 Sodium Level 138 mmol/L (136-145) Potassium Level 3.4 mmol/L (3.5-5.1) Chloride Level 101 mmol/L (98-107) Carbon Dioxide Level 27 mmol/L (21-32) Anion Gap 10 (6-14) Blood Urea Nitrogen 19 mg/dL (7-20) Creatinine 0.6 mg/dL (0.6-1.0) Estimated GFR (Cockcroft-Gault) 104.6 Glucose Level 112 mg/dL (70-99) Calcium Level 8.9 mg/dL (8.5-10.1) Urine Opiates Screen Pos (NEG) Urine Methadone Screen Neg (NEG) Urine Barbiturates Neg (NEG) Urine Phencyclidine Screen Neg (NEG) Urine Amphetamine/Methamphetamine Neg (NEG) Urine Benzodiazepines Screen Pos (NEG) Urine Cocaine Screen Pos (NEG) Urine Cannabinoids Screen Neg (NEG) Urine Ethyl Alcohol Neg (NEG) Laboratory Tests Test 01/22/19 19:55 01/23/19 06:42 01/23/19 07:03 Lactic Acid Level 1.3 mmol/L (0.4-2.0) Sodium Level 138 mmol/L (136-145) Potassium Level 3.4 mmol/L (3.5-5.1) Chloride Level 101 mmol/L (98-107) Carbon Dioxide Level 27 mmol/L (21-32) Anion Gap 10 (6-14) Blood Urea Nitrogen 19 mg/dL (7-20) Creatinine 0.6 mg/dL (0.6-1.0) Estimated GFR (Cockcroft-Gault) 104.6 Glucose Level 112 mg/dL (70-99) Calcium Level 8.9 mg/dL (8.5-10.1) Urine Opiates Screen Pos (NEG) Urine Methadone Screen Neg (NEG) Urine Barbiturates Neg (NEG) Urine Phencyclidine Screen Neg (NEG) Urine Amphetamine/Methamphetamine Neg (NEG) Urine Benzodiazepines Screen Pos (NEG) Urine Cocaine Screen Pos (NEG) Urine Cannabinoids Screen Neg (NEG) Urine Ethyl Alcohol Neg (NEG) VTE Prophylaxis Ordered VTE Prophylaxis Devices: No VTE Pharmacological Prophylaxi: No Assessment/Plan Assessment/Plan SIRS UTI polysubstance abuse psychiatric disorder NOS weakness and debility try to DC PIYUSH Heredia MD Jan 23, 2019 16:58
[2019-01-23] MEDS ORDERED: cefTRIAXone IV Push 1 GM VIAL. IVP SCH (17:00)
[2019-01-23] MEDS: LACTOBACILLUS RHAMNOSUS GG 1 CAPSULE. PO SCH (21:56)
[2019-01-23] MEDS: PHENAZOPYRIDINE 200 MG TABLET. PO PRN (21:56)
[2019-01-24 03:10] VITALS: BP 108/59
[2019-01-24 06:55] VITALS: BP 119/70
[2019-01-24] MEDS: LACTOBACILLUS RHAMNOSUS GG 1 CAPSULE. PO SCH (09:49)
[2019-01-24] MEDS: MAGNESIUM OXIDE 400 MG TABLET PO SCH (09:50)
[2019-01-24] MEDS: PHENAZOPYRIDINE 200 MG TABLET. PO PRN (10:58)
[2019-01-24 11:14] VITALS: BP 135/73
[2019-01-24] MEDS ORDERED: SULF1TAB24 PO (12:12)
--- NOTE | 2019-01-24 12:18 | PDOC3 ---
Discharge Summary Visit Information Date of Admission: Jan 23, 2019 Date of Discharge: Jan 24, 2019 Final Diagnosis SIRS, sepsis UTI polysubstance abuse, including cocaine psychiatric disorder NOS weakness and debility Problems Medical Problems: (1) Anemia Status: Acute (2) Elevated lactic acid level Status: Acute (3) Elevated liver function tests Status: Acute (4) Generalized weakness Status: Acute (5) Hypomagnesemia Status: Acute (6) SIRS (systemic inflammatory response syndrome) Status: Acute (7) Substance abuse Status: Acute (8) Tachycardia Status: Acute Brief Hospital Course Allergies Allergies Coded Allergies Type Severity Reaction Last Updated Verified No Known Drug Allergies 01/10/19 No Vital Signs Vital Signs Date Time Temp Pulse Resp B/P (MAP) Pulse Ox O2 Delivery O2 Flow Rate FiO2 01/24/19 11:14 98.2 99 18 135/73 (93) 96 Room Air 98.2 Lab Results Laboratory Tests Test 01/22/19 16:10 01/22/19 16:15 01/22/19 16:41 01/22/19 19:55 White Blood Count 8.3 x10^3/uL (4.0-11.0) Red Blood Count 3.85 x10^6/uL (3.50-5.40) Hemoglobin 12.8 g/dL (12.0-15.5) Hematocrit 38.3 % (36.0-47.0) Mean Corpuscular Volume 99 fL (79-100) Mean Corpuscular Hemoglobin 33 pg (25-35) Mean Corpuscular Hemoglobin Concent 34 g/dL (31-37) Red Cell Distribution Width 15.2 % (11.5-14.5) Platelet Count 622 x10^3/uL (140-400) Neutrophils (%) (Auto) 60 % (31-73) Lymphocytes (%) (Auto) 29 % (24-48) Monocytes (%) (Auto) 11 % (0-9) Eosinophils (%) (Auto) 0 % (0-3) Basophils (%) (Auto) 1 % (0-3) Neutrophils # (Auto) 5.0 x10^3uL (1.8-7.7) Lymphocytes # (Auto) 2.4 x10^3/uL (1.0-4.8) Monocytes # (Auto) 0.9 x10^3/uL (0.0-1.1) Eosinophils # (Auto) 0.0 x10^3/uL (0.0-0.7) Basophils # (Auto) 0.0 x10^3/uL (0.0-0.2) Prothrombin Time 14.4 SEC (11.7-14.0) Prothromb Time International Ratio 1.2 (0.8-1.1) Activated Partial Thromboplast Time 27 SEC (24-38) Sodium Level 135 mmol/L (136-145) Potassium Level 3.0 mmol/L (3.5-5.1) Chloride Level 96 mmol/L (98-107) Carbon Dioxide Level 28 mmol/L (21-32) Anion Gap 11 (6-14) Blood Urea Nitrogen 20 mg/dL (7-20) Creatinine 0.9 mg/dL (0.6-1.0) Estimated GFR (Cockcroft-Gault) 65.5 BUN/Creatinine Ratio 22 (6-20) Glucose Level 144 mg/dL (70-99) Lactic Acid Level 2.7 mmol/L (0.4-2.0) 1.3 mmol/L (0.4-2.0) Calcium Level 9.8 mg/dL (8.5-10.1) Magnesium Level 1.6 mg/dL (1.8-2.4) Total Bilirubin 1.1 mg/dL (0.2-1.0) Aspartate Amino Transf (AST/SGOT) 39 U/L (15-37) Alanine Aminotransferase (ALT/SGPT) 12 U/L (14-59) Alkaline Phosphatase 136 U/L (46-116) Troponin I Quantitative < 0.017 ng/mL (0.000-0.055) Total Protein 9.0 g/dL (6.4-8.2) Albumin 3.0 g/dL (3.4-5.0) Albumin/Globulin Ratio 0.5 (1.0-1.7) Lipase 310 U/L (73-393) Ethyl Alcohol Level < 10 mg/dL (0-10) O2 Saturation 95 % (92-99) Arterial Blood pH 7.55 (7.35-7.45) Arterial Blood pCO2 at Patient Temp 30 mmHg (35-46) Arterial Blood pO2 at Patient Temp 73 mmHg (75-108) Arterial Blood HCO3 26 mmol/L (21-28) Arterial Blood Base Excess 4 mmol/L (-3-3) FiO2 21 Urine Collection Type U cath Urine Color [place] Urine Clarity Cloudy Urine pH 5.5 Urine Specific [place] 1.025 Urine Protein 100 mg/dL (NEG-TRACE) Urine Glucose (UA) 100 mg/dL (NEG) Urine Ketones (Stick) 15 mg/dL (NEG) Urine Blood Small (NEG) Urine Nitrite Positive (NEG) Urine Bilirubin Moderate (NEG) Urine Urobilinogen Dipstick 1.0 mg/dL (0.2 mg/dL) Urine Leukocyte Esterase Small (NEG) Urine RBC 1-2 /HPF (0-2) Urine WBC 1-4 /HPF (0-4) Urine Squamous Epithelial Cells Occ /LPF Urine Bacteria Few /HPF (0-FEW) Urine Mucus Slight /LPF Test 01/23/19 06:42 01/23/19 07:03 Sodium Level 138 mmol/L (136-145) Potassium Level 3.4 mmol/L (3.5-5.1) Chloride Level 101 mmol/L (98-107) Carbon Dioxide Level 27 mmol/L (21-32) Anion Gap 10 (6-14) Blood Urea Nitrogen 19 mg/dL (7-20) Creatinine 0.6 mg/dL (0.6-1.0) Estimated GFR (Cockcroft-Gault) 104.6 Glucose Level 112 mg/dL (70-99) Calcium Level 8.9 mg/dL (8.5-10.1) Urine Opiates Screen Pos (NEG) Urine Methadone Screen Neg (NEG) Urine Barbiturates Neg (NEG) Urine Phencyclidine Screen Neg (NEG) Urine Amphetamine/Methamphetamine Neg (NEG) Urine Benzodiazepines Screen Pos (NEG) Urine Cocaine Screen Pos (NEG) Urine Cannabinoids Screen Neg (NEG) Urine Ethyl Alcohol Neg (NEG) Brief Hospital Course Ms. Alcantar is a 53 old admti for weakness, confusion, could not walk pos UTI, cx neg, blood cx neg x2 rocephin x2, then bactrim on DC est. primary care sobriety discussed, she did not seem motivated Discharge Information Condition at Discharge: Improved Follow Up: Weeks Disposition/Orders: D/C to Home Scheduled Calcium Carbonate/Vitamin D3 (Oyster Shell 500 Mg + Vit D Tb) 1 Each Tablet, 1 TAB PO BIDWMEALS for BONE HEALTH for 30 Days, #60 Prescribed by: RENETTA VALENCIA MD on 01/14/19 1316 Diclofenac Sodium (Voltaren) 100 Gm Gel..gram., 1 GOVIND TP BID for KNEE PAIN for 10 Days, #20 Prescribed by: RENETTA VALENCIA MD on 01/14/19 1316 Sulfamethoxazole/Trimethoprim (Bactrim Ds Tablet) 1 Each Tablet, 1 TAB PO BID for uti, #10 Prescribed by: PIYUSH RAMOS on 01/24/19 1212 Scheduled PRN Docusate Sodium (Colace) 100 Mg Capsule, 100 MG PO PRN BID PRN for CONSTIPATION 1ST CHOICE for 10 Days, #10 Prescribed by: RENETTA VALENCIA MD on 01/14/19 1316 Patient Instructions Patient Instructions face to face < 30 min total time PIYUSH RAMOS MD Jan 24, 2019 12:18
--- NOTE | 2019-01-24 15:39 | NUR ---
Discharge Note: BEBO LEMUS [address] Discharge instructions and discharge home medications reviewed with patient and a copy given. All questions have been answered and understanding verbalized. The following instructions and handouts were given: Take prescribed antibiotic Bactrim as prescribed. Increase oral fluids. Notify health care provider if rash develops. Discontinued lines and drains: EJ catheter discontinued, tip is intact, patient tolerated removal and no complications noted. Patient discharged to home via wheelchair at 1500,accompanied by patient's friend.
== END 2019-01-24 14:00 | disposition home or self-care (01) | DRG 872 ==
LOC: ER 15:26 → 6 SOUTH 21:15
PROVIDERS: ADMIT Internal Medicine; ATTEND Internal Medicine
DX: A41.9 Sepsis, unspecified organism (principal); N39.0 Urinary tract infection, site not specified; D64.9 Anemia, unspecified; E83.42 Hypomagnesemia; E87.6 Hypokalemia; F14.10 Cocaine abuse, uncomplicated; F17.210 Nicotine dependence, cigarettes, uncomplicated; F41.9 Anxiety disorder, unspecified; Z79.899 Other long term (current) drug therapy
CPT/HCPCS: 36415; 36600; 51701; 71045; 80048; 80053; 80307; 81001; 82805; 83605; 83690; 83735; 84484; 85025; 85610; 85730; 87040; 87086; 93005; 96361; 96372; 96374; G0480; J0696; J2060; J3475; J7030; 97530; 97535; 99285-25